=== PATIENT | female | born 1975 | race Caucasian/White ===

== ENCOUNTER 2021-06-17 10:39 | Emergency (ER) | payer BC ==
[2021-06-17 11:38] LABS: HEMOGLOBIN 17.7 gm/dl (12.3-15.3); RED BLOOD COUNT 6.12 M/UL (4.00-5.10); WHITE BLOOD COUNT 15.7 K/UL (4.5-11.0)
[2021-06-17 12:08] LABS: BUN/CREATININE RATIO 20 (0-10)
== END 2021-06-17 19:04 | disposition home or self-care (01) ==
LOC: ER1 10:39
PROVIDERS: Physician Assistant
DX: U07.1 COVID-19 (principal); J40 Bronchitis, not specified as acute or chronic; R41.82 Altered mental status, unspecified
CPT/HCPCS: 70450; 71045; 80053; 80307; 81001; 82550; 82553; 83605; 83874; 84439; 84443; 84484; 85025; 87040; 93005; 96374; 99285; G0480; J1885; J7030; U0002